=== PATIENT | male | born 1990 | race Caucasian/White ===

== ENCOUNTER 2020-05-23 15:15 | Emergency (ER) | payer OTHER ==
[2020-05-23 17:16] LABS: RED BLOOD COUNT 4.67 M/UL (4.20-5.50); WHITE BLOOD COUNT 2.8 K/UL (4.5-11.0)
[2020-05-23 17:39] LABS: BUN/CREATININE RATIO 23 (0-10)
[2020-05-25 10:13] LABS: HBSAG SCREEN Negative (Negative); HEP A AB, IGM Negative (Negative); HEP B CORE AB, IGM Negative (Negative); HEP C VIRUS AB <0.1 (0.0-0.9)
== END 2020-05-23 19:00 | disposition home or self-care (01) ==
LOC: ER1 15:15
PROVIDERS: Emergency Medicine
DX: D70.8 Other neutropenia (principal); Z20.822 Contact with and (suspected) exposure to COVID-19; F17.210 Nicotine dependence, cigarettes, uncomplicated
CPT/HCPCS: 0240U; 80053; 80074; 83615; 85025; 99283

== ENCOUNTER 2020-06-20 20:41 | Emergency (ER) | payer OTHER ==
[2020-06-20 22:25] LABS: HEMOGLOBIN 13.6 gm/dl (14.0-17.5); RED BLOOD COUNT 4.31 M/UL (4.20-5.50)
[2020-06-20 22:52] LABS: BUN/CREATININE RATIO 17 (0-10)
[2020-06-20] MEDS ORDERED: CLEOCIN HCL300 MG PO (23:18)
[2020-06-20] MEDS ORDERED: IBUPROFEN600 MG PO (23:18)
== END 2020-06-20 23:30 | disposition home or self-care (01) ==
LOC: ER1 20:41
PROVIDERS: Physician Assistant Medical
DX: R68.84 Jaw pain (principal); D70.9 Neutropenia, unspecified; F17.210 Nicotine dependence, cigarettes, uncomplicated
CPT/HCPCS: 80053; 85025; 96365; 99283